=== PATIENT | male | born 1980 | race Two or more races ===

== ENCOUNTER 2020-08-05 07:45 | Day surgery (SDC) | payer OTHER ==
[~2020-08-05] VITALS: Ht 170.2 cm; Wt 96.8 kg
[~2020-08-05 07:45] MED LIST: LOSARTAN POTASS25 MG PO; OMEPRAZOLE20 MG PO; ULTRAM50 MG PO
[2020-08-05] MEDS ORDERED: FAMOTIDINE20 MG PO (08:14)
--- NOTE | 2020-08-05 10:30 | NUR ---
08/05/20 1030 Ally De La Cruz 1015-PATIENT ARRIVED TO PACU ON 6L MASK NONAROUSABLE SNORING. RN DOING JAW THRUST TO MAINTAIN OPEN AIRWAY. 3 LAP SITES TO ABDOMEN CDI. SR. IVF INFUSING. 1020-PATIENT NOT AROUSING TO PAINFUL OR VERBAL STIMULI RN CONTINUING TO DO JAW THRUST UNABLE TO MAINTAIN OPEN AIRWAY. HOB IS ELEVATED. RN SUCTIONED SIDE OF PATIENTS MOUTH TEETH CLENCHED. 1028-RN DOING JAW THRUST TO MAINTAIN OPEN AIRWAY. PATIENT GRIMACING. PATIENT COUGHING. PATIENT OPENING EYES ORIENTED TO PACU. PATIENT THEN MAINTAINS OPEN AIRWAY ON 6L MASK
--- NOTE | 2020-08-05 12:10 | NUR ---
1200: PATIENT BACK IN DAY SURGERY ROOM FROM PACU. DROWSY AT TIMES. EASILY AWAKENS TO VOICE. RATES PAIN 8/10, IN EPIGASTRIC AREA. VS CHECKED. ABDOMINAL DRESSINGS CDI. IV SITE WNL. SCDs ON. PATIENT GIVEN SALTINE CRACKERS AND ICE WATER. THEN MEDICATED WITH 1 TABLET OF NORCO. CALL LIGHT WITHIN REACH. ICE PACK OVER SURGICAL SITES.
--- NOTE | 2020-08-05 13:02 | NUR ---
1230: PATIENT ASSISTED UP TO BATHROOM BY RN AND BROTHER. VOID WITHOUT DIFFICULTY. PATIENT BECAME NAUSEOUS. PATIENT HAD SMALL EMESIS. TRANSPORTED BACK TO ROOM VIA WHEELCHAIR. ASSISTED BACK TO BED. SCDs REPLACED. CALL LIGHT WITHIN REACH. BROTHER AT BEDSIDE. 1300: PATIENT C/O 12/20 PAIN AFTER NORCO ADMIN. MEDICATED WITH IV DILAUDID. LIGHTS DIMMED. PULSE OX ON. CALL LIGHT WITHIN REACH. BROTHER AT BEDSIDE.
--- NOTE | 2020-08-05 13:12 | OR ---
[facility] [address] [place], [place] [address] Signed DATE OF OPERATION: 08/05/2020 SURGEON: Emerson Valenzuela MD PREOPERATIVE DIAGNOSES: Cholecystitis and cholelithiasis (2.8 cm). POSTOPERATIVE DIAGNOSES: Cholecystitis and cholelithiasis (2.8 cm). PROCEDURE: Laparoscopic cholecystectomy with intraoperative cholangiogram. ESTIMATED BLOOD LOSS: None. FINDINGS: The intraoperative cholangiogram was unremarkable. INDICATIONS: Demetrius is a 40-year-old gentleman with a body mass index of 31. Earlier this year, he was having epigastric abdominal pain. He said it is worse after he eats. The episodes were becoming more severe and more frequent. His blood work showed elevated liver function tests. His primary care provider ordered an ultrasound. That revealed a 2.8 cm mobile stone within the gallbladder. The gallbladder wall was not thickened. The common bile duct was unremarkable. However, his symptoms continued. Therefore, he was asked to see me as a local general surgeon. In the office, I gave him a brochure on the gallbladder. We reviewed the location and function of the gallbladder. We reviewed laparoscopic versus open cholecystectomy. He understands expected intraop and postop course. There is risk to surgery including, but not limited to bleeding, infection, scarring, change in contour of the skin, damage to bowel, damage to main bile duct, incisional hernias and other unforeseen comorbidities. He had expressed understanding and wished to proceed. PROCEDURE NOTE: Demetrius was taken in the operating room after we talked to him and his brother. He was placed in a supine position under general endotracheal tube anesthesia. He was given preoperative antibiotics along with subcutaneous heparin. SCDs were utilized. He was then prepped and draped in the usual sterile fashion. All trocars were placed in usual positions under direct visualization of the camera without difficulty. The gallbladder Electronically Signed By: EMERSON VALENZUELA MD 08/05/20 1312 PATIENT NAME: DEMETRIUS GRACIA OPERATIVE REPORT DATE OF : 78 REPORT #: [id number] PHYSICIAN: EMERSON VALENZUELA MD PCP: ARLEN GERARDO NP REPORT IS CONFIDENTIAL AND NOT TO BE RELEASED WITHOUT AUTHORIZATION [facility] [address] [place], [place] [address] Signed was grasped and elevated in the right upper quadrant. Pictures were taken throughout for photodocumentation. The triangle of Calot was dissected free and a clip was placed across the cystic artery and it was divided. The intraoperative cholangiocatheter was placed into the cystic duct. The intraoperative cholangiogram was then performed. The intraoperative cholangiogram was unremarkable. The cystic duct stump was secured with a PDS Endoloop. Two clips were placed across the cystic duct stump to bethany its location. The gallbladder was then removed from the gallbladder fossa with the help of cautery and placed into an EndoCatch bag. The right upper quadrant was irrigated and suctioned out until clear. We used our laparoscopic suturing device to pass 0-Vicryl suture on either side of the fascia of the subxiphoid trocar site. This was tied down to close this fascia primarily. After this, all the gas was allowed to escape and all the remaining trocars were removed. We closed the fascia of the supraumbilical trocar site with interrupted simple and [id number] 0-Vicryl sutures. Local anesthetic was injected into all trocar sites. The skin and dermis of each trocar site were closed with interrupted 3-0 subcuticular Monocryl sutures. Dry gauze and tape were applied to all incisions. After this, Demetrius was awakened from his anesthesia, extubated in the OR, and taken to recovery room in stable condition. Emerson Valenzuela MD ALB/MODL /[id number] cc: MD Emerson Downey MD Copies: SHORTY BIRMINGHAM DMD, ANDREW L MD ~ Electronically Signed By: EMERSON VALENZUELA MD 08/05/20 1312 PATIENT NAME: DEMETRIUS GRACIA OPERATIVE REPORT DATE OF : 78 REPORT #: [id number] PHYSICIAN: EMERSON VALENZUELA MD PCP: ARLEN GERARDO NP REPORT IS CONFIDENTIAL AND NOT TO BE RELEASED WITHOUT AUTHORIZATION
[2020-08-05] MEDS ORDERED: HYDROCODON-ACE1 EAC8 PO (13:13)
--- NOTE | 2020-08-05 14:32 | NUR ---
1345: PATIENT UP TO BATHROOM WITH ASSISTANCE FROM RN AND BROTHER. GAIT STEADY. PATIENT NOW BACK IN BED RESTING. PATIENT GIVEN MEDICATION FOR C/O ACID REFLUX. BROTHER AT BEDSIDE. CALL LIGHT WITHIN REACH.
--- NOTE | 2020-08-05 15:46 | NUR ---
1445: PATIENT DRESSED AND STATES READY TO GO HOME. DISCHARGE INSTRUCTIONS GIVEN TO PATIENT AND BROTHER. IV DC'D WNL. TIP INTACT. DRESSING APPLIED. ICE PACK REFILLED. 1507: PATIENT DISCHARGED TO HOME WITH BROTHER VIA HOSPITAL WHEELCHAIR.
--- NOTE | 2020-08-06 11:30 | PATH ---
[facility] [address] [place] [address] Signed SPECIMEN(S): A GALLBLADDER AND STONE SPECIMEN SOURCE: A. GALLBLADDER AND STONE CLINICAL HISTORY: Laparoscopic cholecystectomy with intraoperative cholangiogram. Calculus of gallbladder with acute and chronic cholecystitis without obstruction. FINAL PATHOLOGIC DIAGNOSIS: Gallbladder, cholecystectomy: - Chronic cholecystitis with cholesterolosis. - Cholelithiasis. NAL:cml:C2NR MICROSCOPIC EXAMINATION: Histologic sections of all submitted blocks are examined by light microscopy. These findings, together with the gross examination, support the pathologic diagnosis. GROSS DESCRIPTION: The specimen, labeled ", A.," and designated on the requisition "gallbladder and stone," is received in formalin and consists of Specimen: Previously opened gallbladder. Dimensions: 8.3 x 3.2 cm. Serosa: Violaceous and smooth with abundant attached adipose tissue. Cystic Duct: Unobstructed. Calculi: One abbasi, crystalline calculus measuring 2.3 x 1.8 x 1.7 cm. Mucosa: Pale green-abbasi and velvety with yellow flecking. Wall thickness: Up to 1.2 cm. Lymph node: No pericystic lymph nodes are grossly identified. Additional: None. Outpatient Program Coordinator sections are submitted in cassette (A1). AT (under the direct supervision of a pathologist) The Gross Description was prepared using a voice recognition system. The report was reviewed for accuracy; however, sound-alike word errors, addition and/or deletions may occur. If there is any question about this report, please contact Client Services. PERFORMING LABORATORY: The technical component was performed by [address], Christiano Fabian, PATIENT NAME: ALTAGRACIA GRACIA PATHOLOGY DATE OF : 78 REPORT #: [id number] PHYSICIAN: LILIANA OLIVERA PCP: ARLEN GERARDO NP REPORT IS CONFIDENTIAL AND NOT TO BE RELEASED WITHOUT AUTHORIZATION [facility] [address] [place], [place] [address] [place] [address] (Development Expert: Ju Dinh MD; CLIA# [id number]). Professional interpretation was performed by [facility], [address] [address] (CLIA# [id number]). Diagnostician: Rossana Smith MD Pathologist Electronically Signed 08/06/2020 Copies: ~ PATIENT NAME: ALTAGRACIA GRACIA PATHOLOGY DATE OF : 78 REPORT #: [id number] PHYSICIAN: LILIANA OLIVERA PCP: ARLEN GERARDO NP REPORT IS CONFIDENTIAL AND NOT TO BE RELEASED WITHOUT AUTHORIZATION
--- NOTE | 2020-08-06 12:37 | EKG ---
[facility] [address] [facility] [place], [place] [address] Signed Normal sinus rhythm Normal ECG No previous ECGs available Confirmed by AMISHA CARROLL DO ([id number]) on 08/06/2020 12:36:53 PM Electronically Signed By: AMISHA CARROLL DO 08/06/20 1237 PATIENT NAME: GRACIAHORACEALTAGRACIA Electrocardiogram DATE OF : 78 PHYSICIAN: AMISHA CARROLL DO REPORT #: [id number] REPORT IS CONFIDENTIAL AND NOT TO BE RELEASED WITHOUT AUTHORIZATION
== END 2020-08-05 15:07 | disposition home or self-care (01) ==
LOC: DS 07:45
PROVIDERS: ATTEND Colon & Rectal Surgery
PROC: BF03YZZ Plain Radiography of Gallbladder and Bile Ducts using Other Contrast (ICD-10-PCS; 2020-08-05)
PROC: 0FT44ZZ Resection of Gallbladder, Percutaneous Endoscopic Approach (ICD-10-PCS; principal; 2020-08-05 08:00)
DX: K80.10 Calculus of gallbladder with chronic cholecystitis without obstruction (principal); K21.9 Gastro-esophageal reflux disease without esophagitis
CPT/HCPCS: 00790; 74300; 93005; 93010; J0131; J0330; J0690; J1100; J1170; J1644; J1885; J2001; J2250; J2300; J2405; J2704; J7121; Q9967